=== PATIENT | male | born 1960 | race Caucasian/White ===

== ENCOUNTER → 2018-06-11 | Outpatient (CLI) | payer MEDICAID ==
[~2018-06-11] MED LIST: ALLOPURINOL 30300 M1 PO; AMOXICILLIN 50500 MG PO; APPLE CIDER VI300 MG PO; AUGMENTIN 875-1 EACH PO; CLONAZEPAM 0.50.5 M1 PO; CURAMED PO; GREEN TEA250 MG PO; LEUKERAN2 MG PO; MAGNESIUM CITR100 MG PO; MILK THISTLE140 M2 PO; MULTIDOPHILUS PO; NATURAL VITALITY; NUTRITIONAL DR420 GM PO; OLIVE OIL; OMEGA-31000 M1 PO; OXYCODONE HCL 55 MG PO; PERIDEX15 ML SWISH&SPIT; VITAMIN A10000 UNI3; VITAMIN B17; [UNRECOGNIZED DRUG - OTHER]; [UNRECOGNIZED DRUG - OTHER]; [UNRECOGNIZED DRUG - OTHER]; [UNRECOGNIZED DRUG - OTHER]; [UNRECOGNIZED DRUG - OTHER]; [UNRECOGNIZED DRUG - OTHER]
[2018-06-11 08:44] VITALS: BP 110/60; BP 112/58; BP 99/53
[2018-06-11 10:35] VITALS: BP 104/58; BP 110/66; BP 115/65; BP 99/53
--- NOTE | 2018-06-11 13:59 | NUR ---
TRANSFUSION COMPLETED AND TOLERATED WELL. DENEIS QUESTIONS OR NEEDS AT DISCHARG.
== END ==
LOC: M.INFUS 07:30
DX: C91.10 Chronic lymphocytic leukemia of B-cell type not having achieved remission (principal); D63.0 Anemia in neoplastic disease

== ENCOUNTER → 2018-06-18 | Outpatient (CLI) | payer MEDICAID ==
[2018-06-18 10:18] VITALS: BP 103/58; BP 112/50; BP 113/55
[2018-06-18 12:17] VITALS: BP 109/60; BP 112/58; BP 113/55; BP 113/64; BP 116/69
--- NOTE | 2018-06-18 15:05 | NUR ---
TRANSFUSION COMPLETED AND TOLERATED WELL. DENEIS ADVERSE REACTION AND NONE NOTED. DENEIS QUESTIONS OR NEEDS AT DISCHARGE.
== END ==
LOC: M.INFUS 08:22
DX: C91.10 Chronic lymphocytic leukemia of B-cell type not having achieved remission (principal); D63.0 Anemia in neoplastic disease

== ENCOUNTER → 2018-07-12 | Outpatient (CLI) | payer MEDICAID ==
[2018-07-12 11:37] VITALS: BP 101/65; BP 104/63
--- NOTE | 2018-07-12 14:26 | NUR ---
TRANSFUSION COMPLETED AND TOLERAETD WELL. DENIES NEEDS OR QUESTIONS AT DISCHARGE.
== END ==
LOC: M.INFUS 05:01
DX: C91.10 Chronic lymphocytic leukemia of B-cell type not having achieved remission (principal); D63.0 Anemia in neoplastic disease

== ENCOUNTER 2018-08-01 18:32 | Emergency (ER) | payer MEDICAID ==
[~2018-08-01] VITALS: Ht 175.3 cm; Wt 70.3 kg
[2018-08-01] MEDS ORDERED: AMOXICILLIN 50500 MG PO (18:56)
[2018-08-01] MEDS ORDERED: LEUKERAN2 MG PO (18:56)
[2018-08-01] MEDS ORDERED: ALLOPURINOL 30300 M1 PO (18:56)
[2018-08-01] MEDS ORDERED: PERIDEX15 ML SWISH&SPIT (18:57)
[2018-08-01] MEDS ORDERED: OXYCODONE HCL 55 MG PO (18:57)
[2018-08-01] MEDS ORDERED: CLONAZEPAM 0.50.5 M1 PO (18:58)
[2018-08-01] MEDS ORDERED: CURAMED PO (18:59)
[2018-08-01] MEDS ORDERED: MULTIDOPHILUS PO (19:00)
[2018-08-01] MEDS ORDERED: OMEGA-31000 M1 PO (19:01)
[2018-08-01] MEDS ORDERED: VITAMIN A10000 UNI3 (19:01)
[2018-08-01] MEDS ORDERED: GREEN TEA250 MG PO (19:01)
[2018-08-01] MEDS ORDERED: MAGNESIUM CITR100 MG PO (19:02)
[2018-08-01] MEDS ORDERED: VITAMIN B17 (19:02)
[2018-08-01] MEDS ORDERED: [UNRECOGNIZED DRUG - OTHER] (19:03)
[2018-08-01] MEDS ORDERED: MILK THISTLE140 M2 PO (19:03)
[2018-08-01] MEDS ORDERED: [UNRECOGNIZED DRUG - OTHER] (19:04)
[2018-08-01] MEDS ORDERED: OLIVE OIL (19:04)
[2018-08-01] MEDS ORDERED: NATURAL VITALITY (19:04)
[2018-08-01] MEDS ORDERED: [UNRECOGNIZED DRUG - OTHER] (19:04)
[2018-08-01] MEDS ORDERED: [UNRECOGNIZED DRUG - OTHER] (19:04)
[2018-08-01] MEDS ORDERED: NUTRITIONAL DR420 GM PO (19:05)
[2018-08-01] MEDS ORDERED: APPLE CIDER VI300 MG PO (19:05)
[2018-08-01] MEDS ORDERED: [UNRECOGNIZED DRUG - OTHER] (19:06)
[2018-08-01] MEDS ORDERED: [UNRECOGNIZED DRUG - OTHER] (19:06)
[2018-08-01] MEDS ORDERED: AUGMENTIN 875-1 EACH PO (19:48)
[2018-08-01 20:02] VITALS: BP 118/64
== END 2018-08-01 20:08 | disposition home or self-care (01) ==
LOC: M.ERS 18:32
DX: J32.9 Chronic sinusitis, unspecified (principal); M51.36 Other intervertebral disc degeneration, lumbar region; Z90.49 Acquired absence of other specified parts of digestive tract

== ENCOUNTER → 2018-08-06 | Outpatient (CLI) | payer MEDICAID ==
[2018-08-06 08:15] VITALS: BP 108/48
[2018-08-06 12:11] VITALS: BP 104/56; BP 105/51; BP 112/58
[2018-08-06 14:27] VITALS: BP 105/51; BP 107/52; BP 115/61; BP 116/78
--- NOTE | 2018-08-06 16:30 | NUR ---
PT LEFT AMBULATORY FOR DISCHARGE HOME TO SELF CARE. IV CANNULA REMOVED IN ITS ENTIRETY. PT GIVEN DISCHARGE INSTRUCTIONS. PT VERBALIZED UNDERSTANDING. PT REPORTS NO ADVERSE S/S OF TRANSFUSIONS.
== END ==
LOC: M.INFUS 02:21
DX: C91.10 Chronic lymphocytic leukemia of B-cell type not having achieved remission (principal)

== ENCOUNTER → 2018-09-05 | Outpatient (CLI) | payer MEDICAID ==
[2018-09-05 12:23] VITALS: BP 102/55; BP 104/57; BP 106/59
--- NOTE | 2018-09-05 13:41 | NUR ---
1135 - ARRIVED AMBULATORY WITH STEADY GAIT TO OUTPT INFUSION AREA, ESCORTED BY DAUGHTER. SETTLED INTO RECLINER. 1226 - TRANSFUSION STARTED. 1340 - ATE LUNCH, UP AD ACE TO BATHROOM. DAUGHTER REMAINS AT SIDE. TOLERATING TRANSFUSION WITHOUT ANY ADVERSE REACTION.
[2018-09-05 14:30] VITALS: BP 102/55; BP 104/57; BP 105/60; BP 108/57
--- NOTE | 2018-09-05 16:54 | NUR ---
2 UNIT BLOOD TRANSFUSION COMPLETED WITHOUT DIFFICULTY. IV D/CD. DISMISSED IN GOOD CONDITION WITH DAUGHTER.
== END ==
LOC: M.INFUS 04:36
DX: C91.10 Chronic lymphocytic leukemia of B-cell type not having achieved remission (principal); D63.0 Anemia in neoplastic disease

== ENCOUNTER → 2018-10-08 | Outpatient (CLI) | payer MEDICAID ==
[~2018-10-08] MED LIST changes: +COLACE100 MG PO; +DEXAMETHASONE 44 M1 PO; +FLEXERIL PO; +IMBRUVICA420 MG PO; +MIRALAX17 GM PO; +TYLENOL325 MG PO; -VITAMIN B17; +VITAMIN B17 PO; -[UNRECOGNIZED DRUG - OTHER]; -[UNRECOGNIZED DRUG - OTHER]; -[UNRECOGNIZED DRUG - OTHER]; +[UNRECOGNIZED DRUG - OTHER] PO; +[UNRECOGNIZED DRUG - OTHER] PO; +[UNRECOGNIZED DRUG - OTHER] PO
[2018-10-08 11:49] VITALS: BP 110/74; BP 112/62; BP 120/59; BP 99/44
[2018-10-08 13:46] VITALS: BP 100/58; BP 104/53; BP 110/56; BP 110/74; BP 120/59
--- NOTE | 2018-10-08 16:30 | NUR ---
ARRIVED AMBULATORY. MADE SELF COMFORTABLE IN RECLINER. IV STARTED WITH OUT DIFFICULTY. TRANSFUSION COMPLETED AND TOLERATED WELL. DENIES NEEDS OR QUESTIONS AT DISCHARGE.
== END ==
LOC: M.LAB 10-07 17:11 → M.INFUS 10:30
DX: C91.10 Chronic lymphocytic leukemia of B-cell type not having achieved remission (principal); D64.9 Anemia, unspecified

== ENCOUNTER 2018-11-04 18:51 | Inpatient (IN) | payer MEDICAID ==
[~2018-11-04] VITALS: Ht 175.3 cm; Wt 71.2 kg
[~2018-11-04 18:51] MED LIST changes: -COLACE100 MG PO; -DEXAMETHASONE 44 M1 PO; -FLEXERIL PO; -IMBRUVICA420 MG PO; -MIRALAX17 GM PO; -TYLENOL325 MG PO
[2018-11-04] MEDS ORDERED: FLEXERIL PO (19:17)
[2018-11-04] MEDS ORDERED: IMBRUVICA420 MG PO (19:18)
[2018-11-04 19:19] VITALS: BP 114/63
[2018-11-04 20:03] LABS: HEMATOCRIT 21.3 % (42.0-52.0); MCH 28.7 pg (26.0-34.0); MCHC 28.6 g/dL (28.0-37.0); MCV 100.5 fL (80.0-100.0); MPV 7.5 fl. (7.2-11.1); NUCLEATED RBCS 0 /100WBC; RBC 2.12 mil/uL (4.50-6.00); RDW-CV 21.9 % (10.5-14.5)
[2018-11-04 20:13] LABS: HEMOGLOBIN 6.1 gm/dL (14.0-18.0); WBC > 383.3 thou/uL (4.0-11.0)
[2018-11-04 20:14] LABS: PLATELET COUNT* 12 thou/uL (150-400)
[2018-11-04 20:18] LABS: NT-PRO BRAIN NAT PEPTIDE 60 pg/mL (<300); TROPONIN-I LEVEL <0.06 ng/mL (<0.06)
[2018-11-04 20:30] LABS: CALCIUM 8.9 mg/dL (8.5-10.1); CREATININE 1.2 mg/dL (0.6-1.3); POTASSIUM 4.5 mmol/L (3.5-5.1)
[2018-11-04 20:34] LABS: ALBUMIN 3.8 g/dL (3.4-5.0); TOTAL BILIRUBIN 0.4 mg/dL (<0.1-1.0); TOTAL PROTEIN 6.6 g/dL (6.4-8.2)
[2018-11-04 21:06] LABS: ABSOLUTE MONOCYTES 7.7 thou/uL (0.0-1.2); ABSOLUTE NEUTROPHILS 7.7 thou/uL (1.6-8.1)
[2018-11-04 21:09] LABS: ANISOCYTOSIS 2+; PLATELET ESTIMATE DECREASED
[2018-11-04 22:00] VITALS: BP 104/53
[2018-11-04 22:10] VITALS: BP 115/65
[2018-11-05] VITALS (11 sets, daily range): BP systolic 89–123; BP diastolic 46–69
[2018-11-05 05:37] LABS: MCH 30.3 pg (26.0-34.0); MCHC 30.9 g/dL (28.0-37.0); MCV 98.3 fL (80.0-100.0); MPV 7.3 fl. (7.2-11.1); RBC 2.14 mil/uL (4.50-6.00); RDW-CV 22.7 % (10.5-14.5)
[2018-11-05 05:51] LABS: WBC 296.8 thou/uL (4.0-11.0)
[2018-11-05 05:52] LABS: HEMOGLOBIN 6.5 gm/dL (14.0-18.0)
--- NOTE | 2018-11-05 10:16 | EKG ---
[place] [address] ELECTROCARDIOGRAM REPORT Name: REGINA MARTIN Room: [address] ADM IN M.R.#: [id number] Admission: 11/04/18 Attend Phys: Morales Luz MD Discharge: Date of : 58 Report #: [id number] THIS REPORT FOR: //name// [facility] ED Test Date: 2018-11-04 Test Time: 19:45:02 Pat Name: REGINA MARTIN Department: Room: [facility] Gender: M Block Sorter: : 1960 Requested By: Val Lainez Order Number: [id number] MD: Leon Cabezas Measurements Intervals [place] Rate: 80 P: 58 NV: 152 QRS: 13 QRSD: 117 T: QT: 349 QTc: 403 Interpretive Statements Sinus rhythm Atrial premature complex Nonspecific intraventricular conduction delay Borderline low voltage, extremity leads Nonspecific T abnormalities, lateral leads No previous ECG available for comparison Electronically Signed On 11-05-2018 10:16:20 RETURNED TELEPHONE EQUIPMENT APPRAISER by Leon Cabezas [email or web address] <ELECTRONICALLY SIGNED> By: Leon Cabezas MD, [facility] 11/05/18 [id number] Leon Cabezas MD, [facility] /EPI
[2018-11-05 16:49] LABS: HEMATOCRIT 27.5 % (42.0-52.0); MCH 29.8 pg (26.0-34.0); MCHC 31.8 g/dL (28.0-37.0); MCV 93.6 fL (80.0-100.0); MPV 6.6 fl. (7.2-11.1); RBC 2.94 mil/uL (4.50-6.00); RDW-CV 20.1 % (10.5-14.5)
[2018-11-05 16:55] LABS: HEMOGLOBIN 8.8 gm/dL (14.0-18.0)
[2018-11-05 17:00] LABS: WBC 284.5 thou/uL (4.0-11.0)
[2018-11-05 17:03] LABS: DIRECT BILIRUBIN 0.1 mg/dL (<0.1-0.3)
[2018-11-06] VITALS: BP 114/59
[2018-11-06 00:56] LABS: HEMATOCRIT 25.9 % (42.0-52.0); HEMOGLOBIN 8.4 gm/dL (14.0-18.0); MCH 30.3 pg (26.0-34.0); MCHC 32.5 g/dL (28.0-37.0); MCV 93.1 fL (80.0-100.0); MPV 6.6 fl. (7.2-11.1); RBC 2.78 mil/uL (4.50-6.00); RDW-CV 20.4 % (10.5-14.5)
[2018-11-06 01:16] LABS: ALBUMIN 3.3 g/dL (3.4-5.0); CALCIUM 8.8 mg/dL (8.5-10.1); CREATININE 0.9 mg/dL (0.6-1.3); POTASSIUM 4.1 mmol/L (3.5-5.1); TOTAL BILIRUBIN 0.3 mg/dL (<0.1-1.0)
[2018-11-06 05:48] LABS: HEMOGLOBIN 8.4 gm/dL (14.0-18.0); MCH 30.5 pg (26.0-34.0); MCHC 32.3 g/dL (28.0-37.0); MCV 94.5 fL (80.0-100.0); MPV 6.4 fl. (7.2-11.1); RBC 2.75 mil/uL (4.50-6.00); RDW-CV 20.7 % (10.5-14.5)
[2018-11-06 05:59] LABS: WBC 282.8 thou/uL (4.0-11.0)
[2018-11-06 06:05] LABS: ALBUMIN 3.3 g/dL (3.4-5.0); CALCIUM 8.7 mg/dL (8.5-10.1); CREATININE 0.9 mg/dL (0.6-1.3); POTASSIUM 3.9 mmol/L (3.5-5.1); TOTAL BILIRUBIN 0.3 mg/dL (<0.1-1.0)
[2018-11-06 07:00] VITALS: BP 111/58
[2018-11-06] MEDS ORDERED: DEXAMETHASONE 44 M1 PO (10:56)
[2018-11-06] MEDS ORDERED: TYLENOL325 MG PO (11:53)
[2018-11-06] MEDS ORDERED: COLACE100 MG PO (11:57)
[2018-11-06] MEDS ORDERED: MIRALAX17 GM PO (11:59)
[2018-11-06 12:46] VITALS: BP 111/58
== END 2018-11-06 13:35 | disposition home or self-care (01) | DRG 841 ==
LOC: M.ERS 18:51 → M.TBA-ER 21:24 → M.3W 21:24
PROVIDERS: Emergency Medicine; Internal Medicine Hematology & Oncology; ADMIT Internal Medicine
PROC: 30233R1 Transfusion of Nonautologous Platelets into Peripheral Vein, Percutaneous Approach (ICD-10-PCS; principal; 2018-11-05)
PROC: 30233N1 Transfusion of Nonautologous Red Blood Cells into Peripheral Vein, Percutaneous Approach (ICD-10-PCS; principal; 2018-11-05)
DX: C91.10 Chronic lymphocytic leukemia of B-cell type not having achieved remission (principal); D69.3 Immune thrombocytopenic purpura; M47.896 Other spondylosis, lumbar region; K06.8 Other specified disorders of gingiva and edentulous alveolar ridge; F17.200 Nicotine dependence, unspecified, uncomplicated; F41.9 Anxiety disorder, unspecified; D50.0 Iron deficiency anemia secondary to blood loss (chronic); Z90.49 Acquired absence of other specified parts of digestive tract; Z79.899 Other long term (current) drug therapy; Z92.21 Personal history of antineoplastic chemotherapy; Z79.82 Long term (current) use of aspirin

== ENCOUNTER 2019-09-28 17:53 | Emergency (ER) | payer MEDICAID ==
[~2019-09-28] VITALS: Ht 175.3 cm; Wt 72.6 kg
[~2019-09-28 17:53] MED LIST changes: +COLACE100 MG PO; +DEXAMETHASONE 44 M1 PO; +FLEXERIL PO; +IMBRUVICA420 MG PO; +MIRALAX17 GM PO; +TYLENOL325 MG PO
[2019-09-28 17:59] VITALS: BP 130/66
[2019-09-28 18:38] LABS: CREATININE 1.2 mg/dL (0.6-1.3); POTASSIUM 5.3 mmol/L (3.5-5.1)
[2019-09-28 18:39] LABS: HEMATOCRIT 34.9 % (42.0-52.0); HEMOGLOBIN 11.5 gm/dL (14.0-18.0); MCH 30.5 pg (26.0-34.0); MCHC 32.9 g/dL (28.0-37.0); MCV 92.7 fL (80.0-100.0); MPV 10.5 fl. (7.2-11.1); NUCLEATED RBCS 0 /100WBC; PLATELET COUNT* 151 thou/uL (150-400); RBC 3.76 mil/uL (4.50-6.00); RDW-CV 15.2 % (10.5-14.5)
[2019-09-28 18:41] LABS: APTT 26.1 Seconds (25.0-31.3)
[2019-09-28 18:45] LABS: WBC 247.9 thou/uL (4.0-11.0)
[2019-09-28 18:48] LABS: INFLUENZA A ANTIGEN Negative (Negative); INFLUENZA B ANTIGEN Negative (Negative)
[2019-09-28 18:48] LABS: ALBUMIN 3.6 g/dL (3.4-5.0); MAGNESIUM 2.1 mg/dL (1.8-2.4); TOTAL BILIRUBIN 0.3 mg/dL (<0.1-1.0); TOTAL PROTEIN 6.6 g/dL (6.4-8.2)
--- NOTE | 2019-09-28 18:52 | NUR ---
REPORT GIVEN TO JUWAN VERMA WHO IS TO ASSUME PT CARE AT THIS TIME.
[2019-09-28 19:09] LABS: ABSOLUTE NEUTROPHILS 9.9 thou/uL (1.6-8.1); PLATELET ESTIMATE ADEQUATE
[2019-09-28] MEDS ORDERED: VENTOLIN HFA 1818 GM INH ×4 (19:45→20:07)
[2019-09-28] MEDS ORDERED: PREDNISONE50 MG PO ×4 (19:45→20:07)
[2019-09-28] MEDS ORDERED: ALBUTEROL2.5 MG/31 INH ×4 (19:45→20:07)
[2019-09-28] MEDS ORDERED: DOXYCYCLINE 10100 M2 PO ×2 (20:02→20:07)
[2019-09-28 20:22] VITALS: BP 123/62
--- NOTE | 2019-09-29 08:49 | EKG ---
[place] [address] ELECTROCARDIOGRAM REPORT Name: REGINA MARTIN Room: [place] [address] ADM IN .R.#: [id number] Admission: 09/28/19 Attend Phys: Dutch Hawkins Discharge: Date of : 58 Report #: [id number] THIS REPORT FOR: //name// [facility] ED Test Date: 2019-09-28 Test Time: 18:47:03 Pat Name: REGINA MARTIN Department: Room: [facility] Gender: M Seo Manager: : 1960 Requested By: David Gimenez Order Number: [id number] MD: Jhonny Garibay Measurements Intervals [place] Rate: 77 P: 59 TN: 155 QRS: 23 QRSD: 113 T: 260 QT: 351 QTc: 398 Interpretive Statements Sinus rhythm Multiple premature complexes, vent & supraven Borderline intraventricular conduction delay Borderline repolarization abnormality Compared to ECG 11/04/2018 19:45:02 Atrial premature complex(es) no longer present Electronically Signed On 09-29-2019 8:48:48 OCEAN TRANSPORTATION INTERMEDIARY by Jhonny Garibay [email or web address] <ELECTRONICALLY SIGNED> By: Jhonny Garibay MD, FACC 09/29/19 [id number] Jhonny Garibay MD, FAC /EPI
== END 2019-09-28 20:22 | disposition left against medical advice (07) ==
LOC: M.ERS 17:53 → M.TBA-ER 18:47
PROVIDERS: Family Medicine
DX: J96.90 Respiratory failure, unspecified, unspecified whether with hypoxia or hypercapnia (principal); F17.210 Nicotine dependence, cigarettes, uncomplicated; Z90.49 Acquired absence of other specified parts of digestive tract

== ENCOUNTER 2021-04-26 23:49 | Emergency (ER) | payer MEDICAID ==
[~2021-04-26] VITALS: Ht 177.8 cm; Wt 72.6 kg
[~2021-04-26 23:49] MED LIST changes: +ALBUTEROL2.5 MG/31 INH; +DOXYCYCLINE 10100 M2 PO; +PREDNISONE50 MG PO; +VENTOLIN HFA 1818 GM INH
[2021-04-27] MEDS ORDERED: BACTRIM DS TAB1 EAC1 PO (00:05)
[2021-04-27] MEDS ORDERED: CLEOCIN HCL300 MG PO ×2 (04:11→04:12)
[2021-04-27 04:19] VITALS: BP 132/72
== END 2021-04-27 04:19 | disposition short-term general hospital (02) ==
LOC: M.ERS 23:49
DX: L02.212 Cutaneous abscess of back [any part, except buttock and flank] (principal); Z79.890 Hormone replacement therapy; Z90.89 Acquired absence of other organs